=== PATIENT | female | born 1960 | race African-American/Black ===

== ENCOUNTER 2017-02-27 11:24 | Inpatient (IN) | payer OTHER ==
[~2017-02-27] VITALS: Ht 162.6 cm; Wt 74.8 kg
--- NOTE | ~2017-02-27 | EKG ---
[address] [place] [address] ELECTROCARDIOGRAM REPORT Name: ALEX ORTIZ Room #: 408-P ADM IN M.R.#: [id number] Admission: 02/27/17 Attend Phys: eKntrell Zacarias DO Discharge: Date of : 64 Report #: [id number] THIS REPORT FOR: //name// [facility] ED Test Date: 2017-02-27 Test Time: 12:21:05 Pat Name: ALEX ORTIZ Department: Room: 408 Gender: F Php Engineer: [id number] : 1960 Requested By: Farida Acosta Order Number: [id number] MD: Yanick Khan Measurements Intervals [place] Rate: 109 P: 75 OR: 136 QRS: 38 QRSD: 72 T: 79 QT: 329 QTc: 444 Interpretive Statements Sinus tachycardia Anteroseptal infarct, old No previous ECG available for comparison Electronically Signed On 02-27-2017 14:49:54 CDT by Yanick Khan [email or web address] <ELECTRONICALLY SIGNED> By: Yanick Khan MD 02/27/17 1449 1221 1221 Yanick Khan MD /NATALIYA
--- NOTE | ~2017-02-27 | HC ---
[facility] [place] [address] [place] [address] CONSULTATION Name: ANGELALEX Room #: 408-P ADM IN M.R.#: [id number] Admission: 02/27/17 Attend Phys: Kentrell Zacarias DO Discharge: Date of : 64 Report #: [id number] THIS REPORT FOR: //name// CC: FAM unknown Kentrell Zacarias REASON FOR CONSULTATION: I was asked to evaluate concerning mucositis and fever. HISTORY OF PRESENT ILLNESS: The patient is a 56-year-old with a history of multiple myeloma that she states is in remission. She had initial diagnosis in 2010 and underwent a bone marrow transplantation in 2012. She also has significant psoriasis and has been on methotrexate for the last month. She does not recall being on any corticosteroids recently. She has underlying chronic kidney disease and nephrotic syndrome. Since being on the methotrexate, she has developed mucositis. This has progressed, being difficult for her to swallow. Now admitted for further evaluation. Does not recall having any fever at home, but now has had temperature up to 102.4 degrees. She has difficulty swallowing. She has significant oral mucositis. There have been no ophthalmologic changes. She has had some bleeding, not clear from the anus or from her vagina. No definite diarrhea. She has had intermittent cough with hemoptysis. No chest pain. No dysuria or frequency. ALLERGIES: DIPHENHYDRAMINE. MEDICATIONS: As noted on her MAR including fluconazole, clotrimazole prior to her admission and those have been continued. Following her temperature spike this evening, empiric vancomycin and cefepime were started. PAST MEDICAL HISTORY: Hypertension; coronary artery disease; chronic kidney disease; multiple myeloma, status post bone marrow transplant; nephrotic syndrome; psoriasis; post-cardiac catheterization; bone marrow biopsy. FAMILY HISTORY: Heart disease, hypertension. SOCIAL HISTORY: Minimal alcohol intake, smoke cigarettes. No HIV risks. No significant travel. REVIEW OF SYSTEMS: As noted above. PHYSICAL EXAMINATION: GENERAL: The patient was alert and cooperative. She was weak. SKIN: Several plaques of psoriasis evident. No adenopathy. EYES: Unremarkable. MOUTH: Extensive mucositis, did not see much thrush. NECK: Supple. LUNGS: Clear. [facility] [address] [place] [address] CONSULTATION Name: ALEX ORTIZ Room #: 408-P [facility] IN M.R.#: [id number] Admission: 02/27/17 Attend Phys: Kentrell Zacarias DO Discharge: Date of : 64 Report #: [id number] HEART: Regular, without murmur. ABDOMEN: Soft and nontender. No hepatosplenomegaly or mass. EXTREMITIES: Unremarkable. NEUROLOGIC: Nonfocal. LABORATORY AND DIAGNOSTIC STUDIES: Sodium 135, potassium 3.7, bicarbonate of 19, creatinine 3.4. Liver function tests normal. Hemoglobin 8.1, white count 1.2 with 44% neutrophils, platelet count 14,000. Urinalysis unremarkable. Ultrasound of the kidneys showed small kidneys, no other changes. Chest x-ray was clear. IMPRESSION: A 56-year-old on methotrexate with pancytopenia, extensive mucositis, high fever, chronic kidney disease with worsening and associated acidosis. Source of her fever, likely from her mucositis with translocation of bacteria. Other end-organ infection not yet identified. She is highly immunosuppressed. RECOMMENDATIONS: We will evaluate mucositis further with viral swab for HSV. Also, screen for CMV. Treat with acyclovir at this time. Obtain blood cultures, urine culture. We will repeat her chest x-ray in the a.m. Agree with broad antibiotic coverage, adjusted for her renal failure. We will reevaluate after initial cultures are back. <ELECTRONICALLY SIGNED> By: Michael Sandoval MD 03/01/17 1128 1722 0307 Michael Sandoval MD /nt
[2017-02-27 11:26] VITALS: BP 113/79
[2017-02-27] MEDS ORDERED: ADVAIR HFA 230M12 GM INH (11:33)
[2017-02-27] MEDS ORDERED: ASPIR-TRIN325 MG PO (11:34)
[2017-02-27] MEDS ORDERED: DIFLUCAN200 MG PO (11:34)
[2017-02-27] MEDS ORDERED: [UNRECOGNIZED DRUG - SUPPLY] PO (11:35)
[2017-02-27] MEDS ORDERED: CLOTRIMAZOLE10 MG DISSOLVE (11:36)
[2017-02-27] MEDS ORDERED: ACCUNEB SO1.25 MG/1 INH (11:36)
[2017-02-27] MEDS ORDERED: FOLIC ACID1 MG PO (11:37)
[2017-02-27] MEDS ORDERED: CRESTOR5 MG PO (11:38)
[2017-02-27] MEDS ORDERED: VITAMIN B-625 MG PO (11:38)
[2017-02-27] MEDS ORDERED: PHENERGAN 25 MG25 M1 PO (11:39)
[2017-02-27] MEDS ORDERED: FLEXERIL PO (11:39)
[2017-02-27] MEDS ORDERED: HYDROXYZINE HCL25 M1 PO (11:39)
[2017-02-27] MEDS ORDERED: COZAAR 50 MG TA50 M2 PO (11:40)
[2017-02-27] MEDS ORDERED: OMEPRAZOLE40 MG PO (11:40)
[2017-02-27] MEDS ORDERED: DEMADEX20 MG PO (11:40)
[2017-02-27] MEDS ORDERED: EFFIENT10 MG PO (11:41)
[2017-02-27] MEDS ORDERED: TOPROL XL25 MG PO (11:41)
[2017-02-27] MEDS ORDERED: CYMBALTA30 MG PO (11:41)
[2017-02-27] MEDS ORDERED: NEURONTIN 300300 M1 PO (11:42)
[2017-02-27] MEDS ORDERED: METHOTREXATE 22.5 MG PO (11:46)
[2017-02-27 12:23] LABS: RDW 15.4 % (10.5-14.5); WBC 2.3 thou/uL (4.0-11.0)
[2017-02-27 12:25] LABS: HEMATOCRIT 28.8 % (37.0-47.0); HEMOGLOBIN 10.1 gm/dL (12.0-15.0); MCH 36.6 pg (26.0-34.0); MCHC 35.1 g/dL (28.0-37.0); MCV 104.1 fL (80.0-100.0); RBC 2.77 mil/uL (4.20-5.00)
[2017-02-27 12:26] LABS: CALCIUM 9.5 mg/dL (8.5-10.1); POTASSIUM 4.3 mmol/L (3.5-5.1)
[2017-02-27 12:27] LABS: MANUAL DIFF YES
[2017-02-27 12:31] LABS: ALBUMIN 3.6 g/dL (3.4-5.0); TOTAL BILIRUBIN 0.7 mg/dL (<0.1-1.0); TOTAL PROTEIN 7.4 g/dL (6.4-8.2)
[2017-02-27 13:12] LABS: ABSOLUTE NEUTROPHILS 1.8 thou/uL (1.4-8.2); PLATELET COUNT 29 thou/uL (150-400); PLATELET ESTIMATE DECREASED; TOTAL CELL COUNT 100
[2017-02-27 13:13] LABS: ANISOCYTOSIS 1+; MACROCYTES 1+
[2017-02-27 13:50] VITALS: BP 111/82
[2017-02-27 14:08] VITALS: BP 114/78
[2017-02-27 14:21] VITALS: BP 108/69
[2017-02-27 20:17] VITALS: BP 115/84
[2017-02-28] VITALS (8 sets, daily range): BP systolic 110–138; BP diastolic 62–95
[2017-02-28 06:37] LABS: HEMATOCRIT 23.9 % (37.0-47.0); RBC 2.28 mil/uL (4.20-5.00)
[2017-02-28 06:39] LABS: MCH 35.8 pg (26.0-34.0); MCHC 34.1 g/dL (28.0-37.0); RDW 15.3 % (10.5-14.5)
[2017-02-28 06:40] LABS: HEMOGLOBIN 8.1 gm/dL (12.0-15.0); MANUAL DIFF YES
[2017-02-28 06:42] LABS: WBC 1.2 thou/uL (4.0-11.0)
[2017-02-28 06:52] LABS: CALCIUM 8.6 mg/dL (8.5-10.1); CREATININE 3.4 mg/dL (0.6-1.0); POTASSIUM 3.7 mmol/L (3.5-5.1)
[2017-02-28 08:33] LABS: ABSOLUTE NEUTROPHILS 0.5 thou/uL (1.4-8.2); ANISOCYTOSIS 1+; TOTAL CELL COUNT 50
[2017-02-28 08:59] LABS: PLATELET COUNT 14 thou/uL (150-400)
[2017-02-28 09:23] LABS: URINE BILIRUBIN NEGATIVE (Negative); URINE BLOOD 2+ (Negative); URINE COLOR YELLOW; URINE GLUCOSE-RANDOM* NEGATIVE (Negative); URINE KETONES NEGATIVE (Negative); URINE NITRITE NEGATIVE (Negative); URINE PROTEIN (DIPSTICK) 3+ (Negative); URINE UROBILINOGEN 0.2 E.U./dl (0.2-1.0)
[2017-02-28 09:31] LABS: URINE CREATININE-RANDOM* 117.9 mg/dL; URINE PROTEIN-RANDOM* 278.6 mg/dL (<11.9)
[2017-02-28 09:35] LABS: BACTERIA 1-9 Few /HPF (None Seen); CASTS None Seen /LPF (None Seen); CRYSTALS None Seen /LPF (None Seen); SQUAMOUS 4-10 Moderate /LPF (0-3); URINE RBC 3-10 Few /HPF (0-2); URINE WBC 0-5 Rare /HPF (0-5)
[2017-02-28 13:11] LABS: IgA 74 mg/dL (87-352); IgG 1006 mg/dL (700-1600); IgM 31 mg/dL (26-217)
[2017-03-01] VITALS: BP 133/87
[2017-03-01 04:00] VITALS: BP 130/79
[2017-03-01 06:12] LABS: HEMATOCRIT 21.2 % (37.0-47.0); HEMOGLOBIN 7.2 gm/dL (12.0-15.0); RBC 2.01 mil/uL (4.20-5.00); RDW 15.2 % (10.5-14.5)
[2017-03-01 06:14] LABS: MCHC 34.1 g/dL (28.0-37.0); MCV 105.3 fL (80.0-100.0)
[2017-03-01 06:15] LABS: MANUAL DIFF YES; PLATELET COUNT 42 thou/uL (150-400)
[2017-03-01 06:18] LABS: WBC 0.8 thou/uL (4.0-11.0)
[2017-03-01 06:28] LABS: ALBUMIN 2.7 g/dL (3.4-5.0); CALCIUM 8.4 mg/dL (8.5-10.1); CREATININE 3.1 mg/dL (0.6-1.0); PHOSPHORUS 3.5 mg/dL (2.5-4.9); POTASSIUM 3.8 mmol/L (3.5-5.1)
[2017-03-01 07:35] LABS: ABSOLUTE NEUTROPHILS 0.2 thou/uL (1.4-8.2); TOTAL CELL COUNT 50
[2017-03-01 07:37] LABS: ANISOCYTOSIS 1+
[2017-03-01 07:59] VITALS: BP 120/86
[2017-03-01 16:00] VITALS: BP 130/89
[2017-03-01 16:06] LABS: KAPPA FREE LIGHT CHAINS 90.3 mg/L (3.3-19.4); KAPPA/LAMBDA RATIO 1.39 (0.26-1.65); LAMBDA FREE LIGHT CHAINS 64.9 mg/L (5.7-26.3)
[2017-03-01 18:17] LABS: ABG SAMPLE TYPE ARTERIAL; BE(vivo) -7.3 mmol/L (-2 to +3); LACTATE 0.79 mmol/L (0.5-2.0); O2(CT) 10.4 mL/dL (15.0-23.0); O2Hb 90.9 % (92.0-98.0); PCO2 29.4 mmHg (35.0-45.0); PO2 66.4 mmHg (80.0-100.0); sO2 93.2 % (92.0-98.0); tCO2 17.9 mmol/L (24.0-30.0)
[2017-03-01 18:18] LABS: ABG COMMENT ROOM AIR; STICK SITE L.RADIAL
[2017-03-01 19:13] VITALS: BP 129/88
[2017-03-02] VITALS (8 sets, daily range): BP systolic 120–146; BP diastolic 64–100
[2017-03-02 01:11] LABS: URINE BILIRUBIN NEGATIVE (Negative); URINE BLOOD 2+ (Negative); URINE COLOR YELLOW; URINE GLUCOSE-RANDOM* NEGATIVE (Negative); URINE KETONES NEGATIVE (Negative); URINE NITRITE NEGATIVE (Negative); URINE PROTEIN (DIPSTICK) 2+ (Negative); URINE SPECIFIC GRAVITY 1.015 (1.003-1.035); URINE UROBILINOGEN 0.2 E.U./dl (0.2-1.0)
[2017-03-02 01:43] LABS: CASTS None Seen /LPF (None Seen); CRYSTALS None Seen /LPF (None Seen); SQUAMOUS 0-3 Few /LPF (0-3); URINE RBC 0-2 Rare /HPF (0-2)
[2017-03-02 01:44] LABS: BACTERIA 1-9 Few /HPF (None Seen); URINE WBC None Seen /HPF (0-5)
[2017-03-02 04:34] LABS: HEMOGLOBIN 6.7 gm/dL (12.0-15.0)
[2017-03-02 04:36] LABS: MCH 35.9 pg (26.0-34.0); MCHC 34.5 g/dL (28.0-37.0); MCV 104.2 fL (80.0-100.0); PLATELET COUNT 24 thou/uL (150-400); RBC 1.85 mil/uL (4.20-5.00)
[2017-03-02 04:45] LABS: MANUAL DIFF YES
[2017-03-02 04:49] LABS: ALBUMIN 2.4 g/dL (3.4-5.0); CALCIUM 8.5 mg/dL (8.5-10.1); CREATININE 2.8 mg/dL (0.6-1.0); PHOSPHORUS 2.7 mg/dL (2.5-4.9); POTASSIUM 3.9 mmol/L (3.5-5.1)
[2017-03-02 04:50] LABS: HEMATOCRIT 19.3 % (37.0-47.0); WBC 0.8 thou/uL (4.0-11.0)
[2017-03-02 05:37] LABS: ABSOLUTE NEUTROPHILS 0.5 thou/uL (1.4-8.2); ATYPICAL LYMPHS 1 %; MYELOCYTES 1 %; NUCLEATED RBCS 1 /100WBC; TOTAL CELL COUNT 100
[2017-03-02 05:38] LABS: MACROCYTES 1+; PLATELET ESTIMATE DECREASED; TOXIC GRANULATION 1+
[2017-03-02 09:11] LABS: A/G RATIO 0.9 (0.7-1.7); ALBUMIN 2.9 g/dL (2.9-4.4); ALPHA 1 0.2 g/dL (0.0-0.4); BETA 0.9 g/dL (0.7-1.3); M-SPIKE Not Observed g/dL (Not Observed)
[2017-03-03] VITALS (9 sets, daily range): BP systolic 123–138; BP diastolic 81–99
[2017-03-03 06:16] LABS: HEMOGLOBIN 7.6 gm/dL (12.0-15.0); RBC 2.23 mil/uL (4.20-5.00)
[2017-03-03 06:17] LABS: HEMATOCRIT 21.8 % (37.0-47.0); MCH 34.3 pg (26.0-34.0); RDW 19.5 % (10.5-14.5)
[2017-03-03 06:21] LABS: MANUAL DIFF YES
[2017-03-03 06:23] LABS: WBC 0.7 thou/uL (4.0-11.0)
[2017-03-03 06:24] LABS: PLATELET COUNT 12 thou/uL (150-400)
[2017-03-03 06:29] LABS: ALBUMIN 2.2 g/dL (3.4-5.0); CALCIUM 8.8 mg/dL (8.5-10.1); CREATININE 2.9 mg/dL (0.6-1.0); PHOSPHORUS 2.5 mg/dL (2.5-4.9); POTASSIUM 3.8 mmol/L (3.5-5.1)
[2017-03-03 07:58] LABS: ABSOLUTE NEUTROPHILS 0.3 thou/uL (1.4-8.2); ATYPICAL LYMPHS 4 %; TOTAL CELL COUNT 50
[2017-03-03 07:59] LABS: ANISOCYTOSIS 2+
[2017-03-03 08:00] LABS: MACROCYTES 1+; MICROCYTES 1+
[2017-03-03 19:33] LABS: RDW 19.3 % (10.5-14.5)
[2017-03-03 19:35] LABS: HEMOGLOBIN 7.5 gm/dL (12.0-15.0); MCH 34.9 pg (26.0-34.0); MCHC 35.6 g/dL (28.0-37.0); MCV 98.1 fL (80.0-100.0); RBC 2.14 mil/uL (4.20-5.00)
[2017-03-03 19:37] LABS: WBC 0.8 thou/uL (4.0-11.0)
[2017-03-04 03:56] VITALS: BP 138/87
[2017-03-04 06:11] LABS: HEMOGLOBIN 7.3 gm/dL (12.0-15.0)
[2017-03-04 06:15] LABS: HEMATOCRIT 20.9 % (37.0-47.0); MCH 34.6 pg (26.0-34.0); MCHC 35.1 g/dL (28.0-37.0); MCV 98.6 fL (80.0-100.0); PLATELET COUNT 48 thou/uL (150-400); RBC 2.12 mil/uL (4.20-5.00); RDW 19.2 % (10.5-14.5)
[2017-03-04 06:21] LABS: MANUAL DIFF YES
[2017-03-04 06:23] LABS: WBC 0.9 thou/uL (4.0-11.0)
[2017-03-04 06:25] LABS: ALBUMIN 2.1 g/dL (3.4-5.0); CALCIUM 8.9 mg/dL (8.5-10.1); CREATININE 2.7 mg/dL (0.6-1.0); PHOSPHORUS 2.3 mg/dL (2.5-4.9); POTASSIUM 3.5 mmol/L (3.5-5.1)
[2017-03-04 06:50] LABS: ABSOLUTE NEUTROPHILS 0.2 thou/uL (1.4-8.2); TOTAL CELL COUNT 50
[2017-03-04 06:52] LABS: ANISOCYTOSIS 3+; POIKILOCYTOSIS SLIGHT; POLYCHROMASIA OCCASIONAL
[2017-03-04 08:13] VITALS: BP 132/93
[2017-03-04 12:14] VITALS: BP 126/88
[2017-03-04 20:00] VITALS: BP 127/92
[2017-03-05 04:00] VITALS: BP 129/78
[2017-03-05 05:53] LABS: HEMATOCRIT 20.1 % (37.0-47.0); HEMOGLOBIN 7.2 gm/dL (12.0-15.0); MANUAL DIFF YES; MCV 97.3 fL (80.0-100.0); PLATELET COUNT 30 thou/uL (150-400); RBC 2.07 mil/uL (4.20-5.00); RDW 19.9 % (10.5-14.5)
[2017-03-05 05:55] LABS: WBC 1.6 thou/uL (4.0-11.0)
[2017-03-05 06:06] LABS: ALBUMIN 2.1 g/dL (3.4-5.0); CALCIUM 8.9 mg/dL (8.5-10.1); CREATININE 2.5 mg/dL (0.6-1.0); PHOSPHORUS 1.7 mg/dL (2.5-4.9); POTASSIUM 3.5 mmol/L (3.5-5.1)
[2017-03-05 06:42] LABS: ABSOLUTE NEUTROPHILS 0.4 thou/uL (1.4-8.2); HYPOCHROMASIA 1+; METAMYELOCYTES 1 %; MYELOCYTES 1 %; PLATELET ESTIMATE DECREASED; TOTAL CELL COUNT 100
[2017-03-05 06:43] LABS: ANISOCYTOSIS 2+; POLYCHROMASIA 1+
[2017-03-05 08:30] VITALS: BP 142/95
[2017-03-05 12:45] VITALS: BP 136/96
[2017-03-05 16:45] VITALS: BP 136/94
[2017-03-05 19:43] VITALS: BP 137/88
[2017-03-06 04:24] VITALS: BP 131/83
[2017-03-06 05:18] LABS: HEMOGLOBIN 7.5 gm/dL (12.0-15.0)
[2017-03-06 05:21] LABS: HEMATOCRIT 21.6 % (37.0-47.0); MCH 34.1 pg (26.0-34.0); MCHC 34.9 g/dL (28.0-37.0); MCV 97.7 fL (80.0-100.0); RBC 2.21 mil/uL (4.20-5.00); RDW 19.6 % (10.5-14.5)
[2017-03-06 05:32] LABS: MANUAL DIFF YES
[2017-03-06 05:33] LABS: WBC 5.9 thou/uL (4.0-11.0)
[2017-03-06 05:39] LABS: CALCIUM 8.9 mg/dL (8.5-10.1); CREATININE 2.5 mg/dL (0.6-1.0); POTASSIUM 3.4 mmol/L (3.5-5.1)
[2017-03-06 07:05] LABS: ABSOLUTE NEUTROPHILS 2.9 thou/uL (1.4-8.2); ATYPICAL LYMPHS 2 %; METAMYELOCYTES 5 %; MYELOCYTES 6 %; NUCLEATED RBCS 4 /100WBC; TOTAL CELL COUNT 100
[2017-03-06 07:09] LABS: TOXIC GRANULATION 2+
[2017-03-06 07:10] LABS: POLYCHROMASIA SLIGHT
[2017-03-06 07:12] LABS: ANISOCYTOSIS 2+; MICROCYTES 1+
[2017-03-06 07:16] LABS: PLATELET COUNT 15 thou/uL (150-400)
[2017-03-06 12:35] LABS: % SATURATION 44 % (20-39); IRON 64 ug/dL (50-170); TIBC 145 ug/dL (250-450); UIBC 81 ug/dL
[2017-03-06 12:53] VITALS: BP 123/84
[2017-03-06 16:04] VITALS: BP 132/90
[2017-03-06 16:48] VITALS: BP 123/81; BP 129/90
[2017-03-06 19:22] VITALS: BP 136/95
[2017-03-07] VITALS (7 sets, daily range): BP systolic 123–139; BP diastolic 83–98
[2017-03-07 06:03] LABS: MCH 33.6 pg (26.0-34.0); MCHC 34.4 g/dL (28.0-37.0); MCV 97.7 fL (80.0-100.0); PLATELET COUNT 29 thou/uL (150-400); RBC 2.04 mil/uL (4.20-5.00); RDW 20.1 % (10.5-14.5); WBC 19.4 thou/uL (4.0-11.0)
[2017-03-07 06:11] LABS: HEMATOCRIT 19.9 % (37.0-47.0)
[2017-03-07 06:13] LABS: MANUAL DIFF YES
[2017-03-07 06:19] LABS: HEMOGLOBIN 6.9 gm/dL (12.0-15.0)
[2017-03-07 06:22] LABS: ALBUMIN 2.2 g/dL (3.4-5.0); CALCIUM 8.9 mg/dL (8.5-10.1); CREATININE 2.7 mg/dL (0.6-1.0); PHOSPHORUS 1.8 mg/dL (2.5-4.9)
[2017-03-07 08:11] LABS: METAMYELOCYTES 12 %; MYELOCYTES 4 %; TOTAL CELL COUNT 100
[2017-03-07 08:15] LABS: TOXIC GRANULATION 1+
[2017-03-07 08:18] LABS: ANISOCYTOSIS 2+; POLYCHROMASIA OCCASIONAL
[2017-03-07 08:20] LABS: ATYPICAL LYMPHS 2 %
[2017-03-07 08:23] LABS: NUCLEATED RBCS 1 /100WBC
[2017-03-08 04:00] VITALS: BP 144/88
[2017-03-08 06:08] LABS: HEMOGLOBIN 8.5 gm/dL (12.0-15.0); RBC 2.6 mil/uL (4.20-5.00)
[2017-03-08 06:11] LABS: HEMATOCRIT 24.7 % (37.0-47.0); MCH 32.5 pg (26.0-34.0); MCHC 34.3 g/dL (28.0-37.0); MCV 94.7 fL (80.0-100.0); RDW 19.5 % (10.5-14.5)
[2017-03-08 06:22] LABS: ALBUMIN 2.3 g/dL (3.4-5.0); CALCIUM 9.9 mg/dL (8.5-10.1); CREATININE 2.5 mg/dL (0.6-1.0); PHOSPHORUS 2.5 mg/dL (2.5-4.9); POTASSIUM 3.7 mmol/L (3.5-5.1)
[2017-03-08 07:51] VITALS: BP 148/92
[2017-03-08 09:37] LABS: HSV PCR SOURCE THROAT
[2017-03-08 15:38] VITALS: BP 147/98
[2017-03-08 22:00] VITALS: BP 136/86
[2017-03-09 03:40] VITALS: BP 154/108
[2017-03-09 04:47] LABS: ALBUMIN 2.3 g/dL (3.4-5.0); CALCIUM 9.6 mg/dL (8.5-10.1); CREATININE 2.6 mg/dL (0.6-1.0); PHOSPHORUS 3.6 mg/dL (2.5-4.9); POTASSIUM 3.8 mmol/L (3.5-5.1)
[2017-03-09 07:31] VITALS: BP 148/95
[2017-03-09 08:17] LABS: HEMATOCRIT 23.7 % (37.0-47.0)
[2017-03-09 08:19] LABS: MCH 32.8 pg (26.0-34.0); MCHC 33.9 g/dL (28.0-37.0); MCV 96.7 fL (80.0-100.0); PLATELET COUNT 49 thou/uL (150-400); RBC 2.45 mil/uL (4.20-5.00); RDW 19.6 % (10.5-14.5); WBC 19.9 thou/uL (4.0-11.0)
[2017-03-09 08:22] LABS: MANUAL DIFF YES
[2017-03-09 09:31] LABS: ABSOLUTE NEUTROPHILS 14.9 thou/uL (1.4-8.2); METAMYELOCYTES 3 %; MYELOCYTES 1 %; PLATELET ESTIMATE DECREASED; TOTAL CELL COUNT 100
[2017-03-09 09:32] LABS: ANISOCYTOSIS 2+
[2017-03-09 09:35] LABS: TOXIC GRANULATION 1+
[2017-03-09 15:18] VITALS: BP 138/90
[2017-03-09 20:34] VITALS: BP 143/88
[2017-03-10 03:24] VITALS: BP 153/99
[2017-03-10 06:37] LABS: HEMATOCRIT 25.4 % (37.0-47.0); HEMOGLOBIN 8.7 gm/dL (12.0-15.0); MCH 32.8 pg (26.0-34.0); MCHC 34.3 g/dL (28.0-37.0); MCV 95.5 fL (80.0-100.0); PLATELET COUNT 84 thou/uL (150-400); RBC 2.66 mil/uL (4.20-5.00); RDW 19.4 % (10.5-14.5)
[2017-03-10 06:41] LABS: MANUAL DIFF YES
[2017-03-10 06:56] LABS: ALBUMIN 2.7 g/dL (3.4-5.0); CALCIUM 10.4 mg/dL (8.5-10.1); CREATININE 2.6 mg/dL (0.6-1.0); PHOSPHORUS 4.3 mg/dL (2.5-4.9); POTASSIUM 3.9 mmol/L (3.5-5.1)
[2017-03-10 07:30] VITALS: BP 145/90
[2017-03-10 08:46] LABS: ABSOLUTE NEUTROPHILS 10.9 thou/uL (1.4-8.2); METAMYELOCYTES 4 %; NUCLEATED RBCS 2 /100WBC; PLATELET ESTIMATE DECREASED; TOTAL CELL COUNT 100
[2017-03-10 08:47] LABS: ANISOCYTOSIS 1+; LARGE PLATELETS FEW
[2017-03-10] MEDS ORDERED: VALTREX 500 MG500 MG PO (09:17)
[2017-03-10] MEDS ORDERED: OXYCODONE-APAP1 EAC6 PO (09:18)
[2017-03-10] MEDS ORDERED: LEVAQUIN 500 M500 M1 PO (09:18)
[2017-03-10 11:34] VITALS: BP 145/90
== END 2017-03-10 13:25 | disposition home or self-care (01) | DRG 808 ==
LOC: ER 11:24 → EROBS 13:40 → 4N 14:08 → 4W 03-01 18:13 → 3W 03-02 19:19 → 4E 03-07 11:15
PROVIDERS: Family Medicine; Hospitalist; Internal Medicine Hematology & Oncology; Physician Assistant; Specialist
PROC: 30233N1 Transfusion of Nonautologous Red Blood Cells into Peripheral Vein, Percutaneous Approach (ICD-10-PCS; principal; 2017-03-02)
PROC: 30233R1 Transfusion of Nonautologous Platelets into Peripheral Vein, Percutaneous Approach (ICD-10-PCS; 2017-03-03)
DX: D61.810 Antineoplastic chemotherapy induced pancytopenia (principal); J18.9 Pneumonia, unspecified organism; E43 Unspecified severe protein-calorie malnutrition; C90.00 Multiple myeloma not having achieved remission; B37.0 Candidal stomatitis; N17.9 Acute kidney failure, unspecified; J44.0 Chronic obstructive pulmonary disease with (acute) lower respiratory infection; Z94.81 Bone marrow transplant status; K12.31 Oral mucositis (ulcerative) due to antineoplastic therapy; N18.9 Chronic kidney disease, unspecified; F17.210 Nicotine dependence, cigarettes, uncomplicated; E86.0 Dehydration; B00.9 Herpesviral infection, unspecified; D72.819 Decreased white blood cell count, unspecified; I25.10 Atherosclerotic heart disease of native coronary artery without angina pectoris; I12.9 Hypertensive chronic kidney disease with stage 1 through stage 4 chronic kidney disease, or unspecified chronic kidney disease; L40.9 Psoriasis, unspecified; E78.5 Hyperlipidemia, unspecified; K21.9 Gastro-esophageal reflux disease without esophagitis; T45.1X5A Adverse effect of antineoplastic and immunosuppressive drugs, initial encounter; Y92.89 Other specified places as the place of occurrence of the external cause; Z79.51 Long term (current) use of inhaled steroids; Z79.82 Long term (current) use of aspirin; Z79.899 Other long term (current) drug therapy; Z68.28 Body mass index [BMI] 28.0-28.9, adult; I25.2 Old myocardial infarction; Z85.830 Personal history of malignant neoplasm of bone; Z88.8 Allergy status to other drugs, medicaments and biological substances; Z82.49 Family history of ischemic heart disease and other diseases of the circulatory system
CPT/HCPCS: 10040; 10080; 10091; 10183; 10779

== ENCOUNTER 2018-04-29 02:22 | Emergency (ER) | payer OTHER ==
[~2018-04-29] VITALS: Ht 165.1 cm; Wt 74.8 kg
[~2018-04-29 02:22] MED LIST: ACCUNEB SO1.25 MG/1 INH; ADVAIR HFA 230M12 GM INH; ASPIR-TRIN325 MG PO; CLOTRIMAZOLE10 MG DISSOLVE; COZAAR 50 MG TA50 M2 PO; CRESTOR5 MG PO; CYMBALTA30 MG PO; DEMADEX20 MG PO; DIFLUCAN200 MG PO; EFFIENT10 MG PO; FLEXERIL PO; FOLIC ACID1 MG PO; HYDROXYZINE HCL25 M1 PO; LEVAQUIN 500 M500 M1 PO; METHOTREXATE 22.5 MG PO; NEURONTIN 300300 M1 PO; OMEPRAZOLE40 MG PO; OXYCODONE-APAP1 EAC6 PO; PHENERGAN 25 MG25 M1 PO; TOPROL XL25 MG PO; VALTREX 500 MG500 MG PO; VITAMIN B-625 MG PO; [UNRECOGNIZED DRUG - SUPPLY] PO
[2018-04-29] MEDS ORDERED: PLAVIX 75 MG TA75 M1 PO (03:29)
[2018-04-29] MEDS ORDERED: KEFLEX500 M1 PO (07:39)
[2018-04-29 08:07] VITALS: BP 148/97
== END 2018-04-29 08:07 | disposition home or self-care (01) ==
LOC: ER 02:22
DX: R04.0 Epistaxis (principal); D69.1 Qualitative platelet defects; Z79.02 Long term (current) use of antithrombotics/antiplatelets; I12.9 Hypertensive chronic kidney disease with stage 1 through stage 4 chronic kidney disease, or unspecified chronic kidney disease; N18.9 Chronic kidney disease, unspecified; K21.9 Gastro-esophageal reflux disease without esophagitis; E78.5 Hyperlipidemia, unspecified; J44.9 Chronic obstructive pulmonary disease, unspecified; I25.10 Atherosclerotic heart disease of native coronary artery without angina pectoris; F17.210 Nicotine dependence, cigarettes, uncomplicated; Z88.8 Allergy status to other drugs, medicaments and biological substances